=== PATIENT | female | born 1970 | race Two or more races ===

== ENCOUNTER 2024-01-29 16:02 | Observation (INO) | payer MEDICARE, MEDICAID, SELFPAY ==
--- NOTE | ~2024-01-29 | CT_ITS ---
EXAMINATION: CT brain wo con DATE: 01/31/2024 10:52 INDICATION: Headache. TECHNIQUE: Computed tomography (CT) of the head was performed without intravenous contrast. The mA wa s adjusted according to patient size. Iterative reconstruction technique was employed. The dose-lengt h product was 605.33 mGy-cm. COMPARISON: None FINDINGS: There is no intracranial hemorrhage, acute infarction, or abnormal intracranial mass lesion . The ventricles are normal in size. There is mild mucosal thickening in the paranasal sinuses. The o rbits are normal. The mastoid air cells are normal. IMPRESSION: 1. Normal brain. Reviewed, dictated and finalized at location A. ION JAILER IMPRESSION: 1. Normal brain.
--- NOTE | ~2024-01-29 | XR_ITS ---
CHEST RADIOGRAPH, PA AND LATERAL CLINICAL HISTORY: chest pain . COMPARISON: None available TECHNIQUE: PA and lateral views of the chest. FINDINGS The cardiomediastinal silhouette is unremarkable. The lungs are clear. Visualized osseous structures and soft tissues are unremarkable. IMPRESSION: No focal infiltrate or effusion. Reviewed, dictated and finalized at location A. ACE COOLER
--- NOTE | ~2024-01-29 | US_ITS ---
EXAMINATION: US venous doppler UE DATE: 01/29/2024 21:17 INDICATION: Pain TECHNIQUE: Grayscale ultrasound images without and with compression and Doppler ultrasound images of the left upper extremity veins were obtained. COMPARISON: None. FINDINGS: The visualized portions of the left jugular, subclavian, axillary, brachial, basilic, cephalic, radia l and ulnar veins are patent and compressible. IMPRESSION: 1. No deep venous thrombosis. Reviewed, dictated and finalized at location A. WALKER
--- NOTE | ~2024-01-29 | US_ITS ---
EXAMINATION: US venous doppler [facility] DATE: 01/30/2024 09:19 INDICATION: Lower limb swelling TECHNIQUE: Grayscale ultrasound images without and with compression and Doppler ultrasound images of the bilateral lower extremity veins were obtained. COMPARISON: None. FINDINGS: The visualized portions of right common femoral vein, profunda (deep) femoral vein, femoral vein, pop liteal vein, posterior tibial veins, peroneal veins, gastrocnemius vein and greater saphenous vein ou tflow are patent. The visualized portions of left common femoral vein, profunda femoral vein, femoral vein, popliteal v ein, posterior tibial veins, peroneal veins, gastrocnemius vein and greater saphenous vein outflow ar e patent. IMPRESSION: 1. No deep venous thrombosis in either lower limb. Reviewed, dictated and finalized at location B. IDENT & CEO
--- NOTE | ~2024-01-29 | XR_ITS ---
HISTORY: shoulder pain COMPARISON: None TECHNIQUE: 4 views of the left shoulder were performed FINDINGS: No acute fracture. The glenohumeral and acromioclavicular joint space is maintained The visualized portion of the adjacent left lung is clear. The humeral head is well seated within the glenoid fossa. IMPRESSION: No acute fracture or anterior dislocation. Reviewed, dictated and finalized at location A. E'S AIDES TEACHER
--- NOTE | ~2024-01-29 | CT_ITS ---
EXAMINATION: CTA chest PE protocol DATE: 01/29/2024 20:49 LIFT MECHANIC INDICATION: Left upper chest pain. Pulmonary embolus suspected clinically TECHNIQUE: Computed tomographic angiography (CTA) of the chest was performed with 100 mL Omnipaque-35 0 intravenous contrast. The dose-length product was 509.57 mGy-cm. Maximum intensity projection 3D-re constructions of the aorta and other arteries were constructed by the technologist on a separate work station. COMPARISON: None. FINDINGS: No filling defect within the main or proximal pulmonary arteries. Pulmonary artery is not enlarged. The heart is of normal size, without pericardial effusion. The lungs are clear. No significant degenerative disease is identified within the thoracic spine. No acute rib fractures. No lytic or blastic lesions are noted. Within the upper abdomen: No significant abnormalities are appreciated. IMPRESSION: No pulmonary embolus. No aortic dissection. No discrete osseous abnormality. The lungs are clear Reviewed, dictated and finalized at location A. MECHANIC
--- NOTE | 2024-01-29 16:22 | ECG_ITS ---
Test Date: 2024-01-29 18:37:51 Measurements Intervals [place] Rate: 67 P: 41 SC: 186 QRS: 73 QRSD: 147 T: -71 QT: 470 QTc: 497 Interpretive Statements SINUS RHYTHM POSSIBLE LEFT ATRIAL ENLARGEMENT IVCD, WITH BOTH RIGHT BUNDLE BRANCH BLOCK AND LBBB CONSIDER INFERIOR INFARCT, AGE INDETERMINATE BASELINE ARTIFACT- I, III, AVR, AVL, AVF ABNORMAL ECG No previous ECG available for comparison Electronically Signed On 01-29-2024 20:21:18 MARKETING EDITOR by Rodrigo Youssef D.O.
--- NOTE | 2024-01-29 16:23 | ED.CHESTPAIN ---
HPI - Chest Pain General Chief Complaint: Headache <Meredith Ruiz PA-C - Last Filed: 01/29/24 16:25> Stated Complaint: migraine x3 days <Meredith Ruiz PA-C - Last Filed: 01/29/24 16:25> Time Seen by Provider: 01/29/24 19:14 <Meredith Ruiz PA-C - Last Filed: 01/29/24 16:25> Focused HPI: 53-year-old female presents to emergency department for multiple medical complaints. Patient is resident [facility]. She is reporting bitemporal headache for couple of days, chest pain and left shoulder pain. She denies injury or trauma to her head, chest or shoulder. She denies cough, congestion, shortness of breath. She states she has no CHF and has lower extremity edema. Denies vision changes, focal numbness or weakness. GENERAL: Well-appearing, well-nourished, and in no acute distress. HEAD: Normocephalic, atraumatic. CHEST: Clear to auscultation. ?No respiratory distress. HEART: Regular rate and rhythm.? NEURO: ?Alert and oriented x3. Patient screened in triage and initial orders placed.? ?Additional care and disposition to be based upon?diagnostic testing and treatment. <Meredith Ruiz PA-C - Last Filed: 01/29/24 16:25> Source: patient <Tasha Contreras MD - Last Filed: 01/29/24 22:11> History of Present Illness HPI narrative: PATIENT CAME FROM SNF COMPLAINING OF UPPER EXTREMITY PAIN, LEFT UPPER EXTREMITY SWOLLEN, LEFT CHEST PAIN, HEADACHE, STARTED 1-2 WEEKS AGO. she denies any fever, chills, nausea, vomiting, shortness of breath or vision change. <Tasha Contreras MD - Last Filed: 01/29/24 22:11> Related Data On Oral Contraceptives: No <Tasha Contreras MD - Last Filed: 01/29/24 22:11> Allergies/Adverse Reactions: Allergies Allergy/AdvReac Type Severity Reaction Status Date / Time Penicillins Allergy Anaphylaxis Verified 01/29/24 19:29 <Meredith Ruiz PA-C - Last Filed: 01/29/24 16:25> Review of Systems Review of Systems: All systems reviewed & are unremarkable except as noted in HPI and below <Tasha Contreras MD - Last Filed: 01/29/24 22:11> Exam Narrative: GENERAL APPEARANCE: WELL-DEVELOPED, WELL-NOURISHED SKIN: NORMAL COLOR HEAD: NORMOCEPHALIC, NONTRAUMATIC EYES: CLEAR CONJUNCTIVA ENT: OROPHARYNX NORMAL, EARS NORMAL, NOSE NORMAL NECK: SUPPLE, NONTENDER CHEST AND RESPIRATORY: AIRWAY PATENT, NO RESPIRATORY DISTRESS, NO ACCESSORY MUSCLE USE HT BULGING VEINS ON THE LEFT SIDE OF THE CHEST HEART: REGULAR RATE/RHYTHM ABDOMEN: SOFT, NONTENDER, NO ORGANOMEGALY, QUIET BOWEL SOUNDS VASCULAR: NORMAL PERIPHERAL PULSES, NORMAL CAPILLARY REFILL. MUSCULOSKELETAL: LEFT UPPER EXTREMITY IS SWOLLEN COMPARED TO RIGHT 1, SLIGHTLY TENDER, SOFT IN CONSISTENCY, NO ERYTHEMA OR RASH, GOOD RANGE OF MOTION NEUROLOGIC: ALERT AND ORIENTED ?3, ROAD TRAIN DRIVER IS NORMAL TESTED, NO GROSS MOTOR DEFICIT <Tasha Contreras MD - Last Filed: 01/29/24 22:11> Course Vital Signs Vital signs: Vital Signs Temperature 36.7 C 01/29/24 16:45 Pulse Rate 75 01/29/24 16:45 Respiratory Rate 18 01/29/24 16:45 Blood Pressure 140/84 01/29/24 16:45 Pulse Oximetry 100 01/29/24 16:45 Oxygen Delivery Room Air 01/29/24 16:45 Temperature 36.7 C 01/29/24 16:45 Pulse Rate 69 01/29/24 19:30 Respiratory Rate 18 01/29/24 19:30 Blood Pressure 132/80 01/29/24 19:24 Pulse Oximetry 100 01/29/24 19:30 Oxygen Delivery Room Air 01/29/24 19:24 <Meredith Ruiz PA-C - Last Filed: 01/29/24 16:25> Vital Signs Temperature 36.7 C 01/29/24 16:45 Pulse Rate 75 01/29/24 16:45 Respiratory Rate 18 01/29/24 16:45 Blood Pressure 140/84 01/29/24 16:45 Pulse Oximetry 100 01/29/24 16:45 Oxygen Delivery Room Air 01/29/24 16:45 Temperature 36.7 C 01/29/24 16:45 Pulse Rate 69 01/29/24 19:30 Respiratory Rate 18 01/29/24 19:30 Blood Pressure 132/80 01/29/24 19:24 Pulse Oximetry 100 01/29/24 19:30 Oxygen Delivery Room Air 01/29/24 19:24 <Tasha Contreras MD - Last Filed: 01/29/24 22:11> MDM - Chest Pain MDM Narrative Medical decision making narrative: Patient presents with headache, chest pain, left upper extremity swelling. Vital signs are stable Physical examination showing that the left upper extremity is larger compared to the right 1. Venous engorgement of the left chest Differential diagnosis left upper extremity deep vein thrombosis, pulmonary embolism, thoracic outlet syndrome, electrolyte abnormality, dehydration, urinary tract infection Blood workup today included CBC and CMP showed sodium of 130, potassium 2.5, chloride 79, creatinine of 1.4, otherwise insignificant abnormalities Urinalysis shows evidence of infection <Tasha Contreras MD - Last Filed: 01/29/24 22:11> Differential Diagnosis Differential diagnosis: Likely other ( as above) <Tasha Contreras MD - Last Filed: 01/29/24 22:11> Medical Records Data Attestation: I reviewed the patient's medical records. <Tasha Contreras MD - Last Filed: 01/29/24 22:11> Lab Data Attestation: I reviewed the patient's lab results. <Tasha Contreras MD - Last Filed: 01/29/24 22:11> Result diagrams: 01/29/24 18:29 01/29/24 18:29 <Meredith Ruiz PA-C - Last Filed: 01/29/24 16:25> Labs: Lab Results 01/29/24 01/29/24 01/29/24 Range/Units 18:29 18:31 19:49 WBC 10.0 (4.5-10.0) K/mm3 RBC 4.76 (4.2-5.4) M/mm3 Hgb 13.3 (12.0-15.0) g/dL Hct 38.2 (37.0-47.0) % MCV 80.3 (80-100) fl MCH 27.9 (26-34) pg MCHC 34.8 (32-36) g/dl RDW 11.9 (11.5-14.5) % Plt Count 241 (150-375) k/mm3 MPV 11.3 H (7.4-10.4) fl Immature Gran % (Auto) 0.3 (0-0.5) % Neut % (Auto) 62.9 (45.5-73.1) % Lymph % (Auto) 26.6 (18.3-44.2) % [place] % (Auto) 6.8 (2.6-8.5) % Eos % (Auto) 2.8 (0-4.4) % Baso % (Auto) 0.6 (0.2-1.2) % Lymph # (Auto) 2.65 (0.9-3.2) K/mm3 [place] # (Auto) 0.7 H (0.1-0.6) K/mm3 Eos # (Auto) 0.3 (0-0.3) K/mm3 Baso # (Auto) 0.1 (0.0-0.1) K/mm3 Abs Immat Gran (auto) 0.03 (0.00-0.031) K/mm3 Absolute Neuts (auto) 6.3 (1.3-6.7) K/mm3 Absolute Nucleated RBC 0.000 (0.0-0.012) K/mm3 Nucleated RBC % 0.0 (0.0-0.2) % PT 12.6 (11.1-14.7) Seconds INR 0.9 APTT 23.4 (22.3-36.8) Seconds D-Dimer 0.28 (<0.48) ug/mL Sodium 130 L (137-145) mmol/L Potassium 2.5 L* (3.4-5.0) mmol/L Chloride 79 L (98-107) mmol/L Carbon Dioxide > 40 H (22-30) mmol/L Anion Gap (4-12) mmol/L BUN 34 H (7-17) mg/dL Creatinine 1.40 H (0.7-1.0) mg/dL Estim Creat Clear Calc 37 ml/min Estimated GFR 39 L (59 - ) Glucose 132 H (65-110) mg/dL Calcium 8.5 (8.4-10.2) mg/dL Total Bilirubin 0.6 (0.2-1.3) mg/dL AST 27 (14-36) U/L ALT 23 (6-35) U/L Alkaline Phosphatase 106 (38-126) U/L Troponin I < 0.012 < 0.012 (0.000-0.034) ng/mL NT-Pro-B Natriuret Pep 60 (19.9-100) pg/mL Total Protein 9.0 H (6.3-8.2) g/dL Albumin 4.9 (3.5-5.1) g/dL Lipase 58 (23-300) U/L Urine Color Yellow (Yellow) Urine Appearance Clear (Clear) Urine pH 5.5 (5.0-9.0) Ur Specific [place] 1.012 (1.001-1.035) Urine Protein Negative (Negative) mg/dL Urine Glucose (UA) Negative (Negative) mg/dL Urine Ketones Negative (Negative) mg/dL Ur Blood (Man) Negative (Negative) Urine Nitrate Negative (Negative) Urine Bilirubin Negative (Negative) Urine Urobilinogen 0.2 (<2.0) mg/dL Add Ur Microanalysis Reviewed Leukocyte Esterase Rfl 2+ H (Negative) ATUL/UL Urine RBC 0-2 (0-2) /hpf Urine WBC 6-10 H (0-3) /hpf Ur Squamous Epith Cells Occasional (Few) /hpf Urine Bacteria Rare /hpf Urine Casts 6-10 Hyaline Casts Present (None) /lpf <Meredith Ruiz PA-C - Last Filed: 01/29/24 16:25> Lab Results 01/29/24 01/29/24 01/29/24 Range/Units 18:29 18:31 19:49 WBC 10.0 (4.5-10.0) K/mm3 RBC 4.76 (4.2-5.4) M/mm3 Hgb 13.3 (12.0-15.0) g/dL Hct 38.2 (37.0-47.0) % MCV 80.3 (80-100) fl MCH 27.9 (26-34) pg MCHC 34.8 (32-36) g/dl RDW 11.9 (11.5-14.5) % Plt Count 241 (150-375) k/mm3 MPV 11.3 H (7.4-10.4) fl Immature Gran % (Auto) 0.3 (0-0.5) % Neut % (Auto) 62.9 (45.5-73.1) % Lymph % (Auto) 26.6 (18.3-44.2) % [place] % (Auto) 6.8 (2.6-8.5) % Eos % (Auto) 2.8 (0-4.4) % Baso % (Auto) 0.6 (0.2-1.2) % Lymph # (Auto) 2.65 (0.9-3.2) K/mm3 [place] # (Auto) 0.7 H (0.1-0.6) K/mm3 Eos # (Auto) 0.3 (0-0.3) K/mm3 Baso # (Auto) 0.1 (0.0-0.1) K/mm3 Abs Immat Gran (auto) 0.03 (0.00-0.031) K/mm3 Absolute Neuts (auto) 6.3 (1.3-6.7) K/mm3 Absolute Nucleated RBC 0.000 (0.0-0.012) K/mm3 Nucleated RBC % 0.0 (0.0-0.2) % PT 12.6 (11.1-14.7) Seconds INR 0.9 APTT 23.4 (22.3-36.8) Seconds D-Dimer 0.28 (<0.48) ug/mL Sodium 130 L (137-145) mmol/L Potassium 2.5 L* (3.4-5.0) mmol/L Chloride 79 L (98-107) mmol/L Carbon Dioxide > 40 H (22-30) mmol/L Anion Gap (4-12) mmol/L BUN 34 H (7-17) mg/dL Creatinine 1.40 H (0.7-1.0) mg/dL Estim Creat Clear Calc 37 ml/min Estimated GFR 39 L (59 - ) Glucose 132 H (65-110) mg/dL Calcium 8.5 (8.4-10.2) mg/dL Total Bilirubin 0.6 (0.2-1.3) mg/dL AST 27 (14-36) U/L ALT 23 (6-35) U/L Alkaline Phosphatase 106 (38-126) U/L Troponin I < 0.012 < 0.012 (0.000-0.034) ng/mL NT-Pro-B Natriuret Pep 60 (19.9-100) pg/mL Total Protein 9.0 H (6.3-8.2) g/dL Albumin 4.9 (3.5-5.1) g/dL Lipase 58 (23-300) U/L Urine Color Yellow (Yellow) Urine Appearance Clear (Clear) Urine pH 5.5 (5.0-9.0) Ur Specific [place] 1.012 (1.001-1.035) Urine Protein Negative (Negative) mg/dL Urine Glucose (UA) Negative (Negative) mg/dL Urine Ketones Negative (Negative) mg/dL Ur Blood (Man) Negative (Negative) Urine Nitrate Negative (Negative) Urine Bilirubin Negative (Negative) Urine Urobilinogen 0.2 (<2.0) mg/dL Add Ur Microanalysis Reviewed Leukocyte Esterase Rfl 2+ H (Negative) ATUL/UL Urine RBC 0-2 (0-2) /hpf Urine WBC 6-10 H (0-3) /hpf Ur Squamous Epith Cells Occasional (Few) /hpf Urine Bacteria Rare /hpf Urine Casts 6-10 Hyaline Casts Present (None) /lpf <Tasha Contreras MD - Last Filed: 01/29/24 22:11> Imaging Data Radiologist's impression: Impressions Chest X-Ray 01/29/24 17:01 IMPRESSION: No focal infiltrate or effusion. Shoulder X-Ray 01/29/24 17:04 IMPRESSION: No acute fracture or anterior dislocation. Chest CTA 01/29/24 20:49 IMPRESSION: No pulmonary embolus. No aortic dissection. No discrete osseous abnormality. The lungs are clear Venous Doppler Study 01/29/24 21:29 IMPRESSION: 1. No deep venous thrombosis. <Tasha Contreras MD - Last Filed: 01/29/24 22:11> ECG Data EKG #1: Attestation: I personally reviewed and interpreted this ECG as follows: <Tasha Contreras MD - Last Filed: 01/29/24 22:11> ECG completion date: 01/29/24 <Tasha Contreras MD - Last Filed: 01/29/24 22:11> Prior ECG tracings: not available for review <Tasha Contreras MD - Last Filed: 01/29/24 22:11> Interpretation: normal sinus rhythm at 6 5 beats per minute, left atrial enlargement, right bundle branch block, consider inferior infarct, age indeterminate, abnormal EKG <Tasha Contreras MD - Last Filed: 01/29/24 22:11> Critical Care Time Critical Care Time Critical Care Time: No <Tasha Contreras MD - Last Filed: 01/29/24 22:11> Discharge Plan Discharge Clinical Impression: Hyponatremia, Hypokalemia, Renal insufficiency, Urinary tract infection <Meredith Ruiz PA-C - Last Filed: 01/29/24 16:25> Patient Disposition: Still a Patient <Meredith Ruiz PA-C - Last Filed: 01/29/24 16:25> Condition: Stable <Meredith Ruiz PA-C - Last Filed: 01/29/24 16:25> Additional Instructions: admit to hospitalist <Meredith Ruiz PA-C - Last Filed: 01/29/24 16:25> Follow-up/Referrals: UNKNOWN,DOCTOR [Primary Care Provider] - <Meredith Ruiz PA-C - Last Filed: 01/29/24 16:25>
[2024-01-29 16:45] VITALS: BP 140/84; PULSE 75; RESP 18; TEMP 36.7; O2SAT 100
[2024-01-29 18:39] LABS: Basophils Absolute Auto 0.1 K/mm3 (0.0-0.1); Basophils Percent Auto 0.6 % (0.2-1.2); Eosinophils Absolute Auto 0.3 K/mm3 (0-0.3); Eosinophils Percent Auto 2.8 % (0-4.4); Hematocrit 38.2 % (37.0-47.0); Hemoglobin 13.3 g/dL (12.0-15.0); Immature Granulocyte Absolute 0.03 K/mm3 (0.00-0.031); Immature Granulocyte Percent A 0.3 % (0-0.5); Lymphocytes Absolute Auto 2.65 K/mm3 (0.9-3.2); Lymphocytes Percent Auto 26.6 % (18.3-44.2); Mean Corpuscular HGB Conc 34.8 g/dl (32-36); Mean Corpuscular Hemoglobin 27.9 pg (26-34); Mean Corpuscular Volume 80.3 fl (80-100); Mean Platelet Volume 11.3 fl (7.4-10.4); Monocytes Absolute Auto 0.7 K/mm3 (0.1-0.6); Monocytes Percent Auto 6.8 % (2.6-8.5); Neutrophils Absolute Auto 6.3 K/mm3 (1.3-6.7); Neutrophils Percent Auto 62.9 % (45.5-73.1); Platelet Count Result 241 k/mm3 (150-375); Red Blood Count 4.76 M/mm3 (4.2-5.4); Red Cell Distribution Width 11.9 % (11.5-14.5)
[2024-01-29 18:52] LABS: Alanine Aminotransferase 23 U/L (6-35); Albumin Level 4.9 g/dL (3.5-5.1); Alkaline Phosphatase 106 U/L (38-126); Aspartate Amino Transferase 27 U/L (14-36); Bilirubin,Total 0.6 mg/dL (0.2-1.3); Blood Urea Nitrogen 34 mg/dL (7-17); Calcium 8.5 mg/dL (8.4-10.2); Carbon Dioxide > 40 mmol/L (22-30); Chloride 79 mmol/L (98-107); Estimated CRCL calculation 37 ml/min; Estimated Glomerular Filt Rate 39; Glucose 132 mg/dL (65-110); Lipase 58 U/L (23-300); Potassium 2.5 mmol/L (3.4-5.0); Sodium 130 mmol/L (137-145)
[2024-01-29 19:00] LABS: NT Pro B Type Natriuretic Pept 60 pg/mL (19.9-100); Troponin I < 0.012 ng/mL (0.000-0.034)
[2024-01-29 19:18] LABS: Add Urine Microscopic? YES; Appearance Urine Clear (Clear); Bacteria Urine Rare /hpf; Bilirubin Urine Negative (Negative); Blood Urine Negative (Negative); Color Urine Yellow (Yellow); Glucose Urine UA Negative (Negative); Hyaline Casts Urine Present /lpf; Ketones Urine Negative (Negative); Leukocyte Esterase Ur 2+ LEU/UL (Negative); Need Manual Microscopic Reviewed; Nitrate Urine Negative (Negative); Protein Urine Negative (Negative); RBC Urine 0-2 /hpf (0-2); Specific Grav Ur 1.012 (1.001-1.035); Squamous Epithelial Cell Urine Occasional /hpf (Few); Urobilinogen Urine 0.2 mg/dL (<2.0); pH Urine 5.5 (5.0-9.0)
[2024-01-29 19:21] LABS: INR 0.9; Prothrombin Time 12.6 Seconds (11.1-14.7)
[2024-01-29 19:23] LABS: Partial Thromboplastin Time 23.4 Seconds (22.3-36.8)
[2024-01-29 19:24] VITALS: BP 132/80; PULSE 72; RESP 17; O2SAT 100
--- NOTE | 2024-01-29 19:24 | ECG_ITS ---
Test Date: 2024-01-29 19:48:50 Measurements Intervals [place] Rate: 65 P: 33 AR: 185 QRS: 57 QRSD: 156 T: -59 QT: 533 QTc: 555 Interpretive Statements SINUS RHYTHM POSSIBLE LEFT ATRIAL ENLARGEMENT IVCD, WITH RIGHT BUNDLE BRANCH BLOCKAND LBBB CONSIDER INFERIOR INFARCT, AGE INDETERMINATE ABNORMAL ECG Compared to ECG 01/29/2024 18:37:51 No significant changes Electronically Signed On 01-29-2024 20:18:24 SHEETER MACHINE OPERATOR by Rodrigo Youssef D.O.
--- NOTE | 2024-01-29 19:24 | ED.GENADULT ---
HPI - General Adult General Chief complaint: Headache Stated complaint: migraine x3 days Time Seen by Provider: 01/29/24 19:14 Related Data Allergies Allergy/AdvReac Type Severity Reaction Status Date / Time Penicillins Allergy Anaphylaxis Verified 01/29/24 19:29 Course Vital Signs Vital signs: Vital Signs Temperature 36.7 C 01/29/24 16:45 Pulse Rate 75 01/29/24 16:45 Respiratory Rate 18 01/29/24 16:45 Blood Pressure 140/84 01/29/24 16:45 Pulse Oximetry 100 01/29/24 16:45 Oxygen Delivery Room Air 01/29/24 16:45 Temperature 36.7 C 01/29/24 16:45 Pulse Rate 72 01/29/24 19:24 Respiratory Rate 17 01/29/24 19:24 Blood Pressure 132/80 01/29/24 19:24 Pulse Oximetry 100 01/29/24 19:24 Oxygen Delivery Room Air 01/29/24 19:24 Medical Decision Making Vital Signs Vital Signs: Vital Signs Temperature 36.7 C 01/29/24 16:45 Pulse Rate 75 01/29/24 16:45 Respiratory Rate 18 01/29/24 16:45 Blood Pressure 140/84 01/29/24 16:45 Pulse Oximetry 100 01/29/24 16:45 Oxygen Delivery Room Air 01/29/24 16:45 Temperature 36.7 C 01/29/24 16:45 Pulse Rate 72 01/29/24 19:24 Respiratory Rate 17 01/29/24 19:24 Blood Pressure 132/80 01/29/24 19:24 Pulse Oximetry 100 01/29/24 19:24 Oxygen Delivery Room Air 01/29/24 19:24 Lab Data 01/29/24 18:29 01/29/24 18:29 Labs: Lab Results 01/29/24 01/29/24 Range/Units 18:29 18:31 WBC 10.0 (4.5-10.0) K/mm3 RBC 4.76 (4.2-5.4) M/mm3 Hgb 13.3 (12.0-15.0) g/dL Hct 38.2 (37.0-47.0) % MCV 80.3 (80-100) fl MCH 27.9 (26-34) pg MCHC 34.8 (32-36) g/dl RDW 11.9 (11.5-14.5) % Plt Count 241 (150-375) k/mm3 MPV 11.3 H (7.4-10.4) fl Immature Gran % (Auto) 0.3 (0-0.5) % Neut % (Auto) 62.9 (45.5-73.1) % Lymph % (Auto) 26.6 (18.3-44.2) % [place] % (Auto) 6.8 (2.6-8.5) % Eos % (Auto) 2.8 (0-4.4) % Baso % (Auto) 0.6 (0.2-1.2) % Lymph # (Auto) 2.65 (0.9-3.2) K/mm3 [place] # (Auto) 0.7 H (0.1-0.6) K/mm3 Eos # (Auto) 0.3 (0-0.3) K/mm3 Baso # (Auto) 0.1 (0.0-0.1) K/mm3 Abs Immat Gran (auto) 0.03 (0.00-0.031) K/mm3 Absolute Neuts (auto) 6.3 (1.3-6.7) K/mm3 Absolute Nucleated RBC 0.000 (0.0-0.012) K/mm3 Nucleated RBC % 0.0 (0.0-0.2) % PT 12.6 (11.1-14.7) Seconds INR 0.9 APTT 23.4 (22.3-36.8) Seconds Sodium 130 L (137-145) mmol/L Potassium 2.5 L* (3.4-5.0) mmol/L Chloride 79 L (98-107) mmol/L Carbon Dioxide > 40 H (22-30) mmol/L Anion Gap (4-12) mmol/L BUN 34 H (7-17) mg/dL Creatinine 1.40 H (0.7-1.0) mg/dL Estim Creat Clear Calc 37 ml/min Estimated GFR 39 L (59 - ) Glucose 132 H (65-110) mg/dL Calcium 8.5 (8.4-10.2) mg/dL Total Bilirubin 0.6 (0.2-1.3) mg/dL AST 27 (14-36) U/L ALT 23 (6-35) U/L Alkaline Phosphatase 106 (38-126) U/L Troponin I < 0.012 (0.000-0.034) ng/mL NT-Pro-B Natriuret Pep 60 (19.9-100) pg/mL Total Protein 9.0 H (6.3-8.2) g/dL Albumin 4.9 (3.5-5.1) g/dL Lipase 58 (23-300) U/L Urine Color Pending Urine Appearance Pending Urine pH Pending Ur Specific [place] Pending Urine Protein Pending Urine Glucose (UA) Pending Urine Ketones Pending Ur Blood (Man) Pending Urine Nitrate Pending Urine Bilirubin Pending Urine Urobilinogen Pending Leukocyte Esterase Rfl Pending Discharge Plan Discharge Follow-up/Referrals: UNKNOWN,DOCTOR [Primary Care Provider] -
[2024-01-29 19:30] VITALS: PULSE 69; RESP 18; O2SAT 100
[2024-01-29 20:08] LABS: D Dimer 0.28 ug/mL (<0.48)
[2024-01-29 20:20] LABS: Troponin I < 0.012 ng/mL (0.000-0.034)
[2024-01-29 21:34] VITALS: BP 133/79; PULSE 66; RESP 12; O2SAT 100
[2024-01-29 21:47] VITALS: BP 147/90; PULSE 67; RESP 14; O2SAT 100
[2024-01-29] MEDS: POTASSIUM CHLORIDE 20 MEQ PACKET (FOR LIQUID) 40 MEQ PO (22:05)
[2024-01-29] MEDS: POTASSIUM CHLORIDE INJ 40 MEQ in SODIUM CHLORIDE 0.9% IV 500 ML 130 MEQ IVPB (22:05)
[2024-01-29] MEDS: SODIUM CHLORIDE 0.9% IV 1,000 ML 999 ML IV CONT (22:05)
[2024-01-29 22:34] LABS: Fractional Inspired Oxygen 21 %; HCO3 VBG 39.7 mEq/l (24.0-30.0); PCO2 VBG 48.1 mmHg (42.0-48.0); PO2 VBG 42.7 mmHg (35.0-45.0)
[2024-01-29 22:41] LABS: Device ROOM AIR; pH VBG 7.535 (7.300-7.400)
[2024-01-29 23:09] LABS: Troponin I < 0.012 ng/mL (0.000-0.034)
[2024-01-29 23:54] VITALS: BMI 32.4
[2024-01-30] VITALS (10 sets, daily range): BP systolic 107–128; BP diastolic 69–81; PULSE 59–85; RESP 12–18; TEMP 36.2–36.7; O2SAT 97–99
--- NOTE | 2024-01-30 00:35 | ECHO_ITS ---
Patient Info Name: Nataliya Simon Age: 53 years : 1970 Gender: Female Ht: 59 in Wt: 160 lbs BSA: 1.77 m2 HR: 74 bpm BP: 107 / 79 mmHg Technical Quality: Fair Exam Date: 01/30/2024 11:58 AM Exam Location: Echo Lab Patient Status: Inpatient Admit Date: 01/29/2024 Staff Ordering Physician: Carmelita Grider PA-C [employer] Mixer: Neda Jimenez RDCS Attending Provider: Lilian Pandey PA-C Referring Physician: Cheo LYLE; Exam Type: CA echo doppler color flow Study Info Indications - EDEMA Complete two-dimensional, color flow and Doppler transthoracic echocardiogram is performed. Summary 1. Complete two-dimensional, color flow and Doppler transthoracic echocardiogram is performed. 2. Left ventricular chamber dimension is normal. 3. Left ventricular systolic function is hyperdynamic, estimated at >70%. 4. The left ventricular diastolic function is grade I diastolic dysfunction. 5. E/e' 13 is mildly elevated. 6. No pulmonary hypertension, estimated pulmonary arterial systolic pressure is 23 mmHg. Left Ventricle E/e' 13 is mildly elevated. Left ventricular chamber dimension is normal. Left ventricular systolic function is hyperdynamic, estimated at >70%. The left ventricular diastolic function is grade I diastolic dysfunction. Right Ventricle Right ventricular chamber dimension is normal. Right ventricular systolic function is normal. Left Atria Left atrial chamber dimension is normal. Right Atria Right atrial chamber dimension is normal. Aortic Valve The aortic valve is not well visualized. Cannot determine number of aortic valve leaflets. There is no aortic valve stenosis. There is no aortic valve regurgitation. Pulmonic Valve There is no pulmonic regurgitation. Mitral Valve There is no mitral valve stenosis. There is no mitral valve regurgitation. Tricuspid Valve There is no tricuspid valve regurgitation. No pulmonary hypertension, estimated pulmonary arterial systolic pressure is 23 mmHg. Pericardium/Pleural There is no pericardial effusion. Inferior Vena Cava Normal inferior vena cava with >50% collapse upon inspiration consistent with normal right atrial pressure, 5 mmHg. Aorta The aortic root size at the sinus of Valsalva is normal. Left Ventricular Outflow Tract Name Value Normal LVOT 2D LVOT Diameter 1.9 cm LVOT Doppler LVOT Peak Gradient 6 mmHg LVOT Mean Gradient 4 mmHg LVOT VTI 27 cm LVOT VTI/AV VTI Ratio 1.0 LVOT Stroke Volume 75 ml LVOT CO 4.8 l/min LVOT CI 2.7 l/min/m2 Pulmonic Valve Name Value Normal RVOT Doppler RVOT Peak Gradient 3 mmHg PV Doppler PV Peak Gradient 6 mmHg Mitral Valve Name Value Normal MV Doppler MV Decel [place] 410 cm/s2 MV PHT 69 ms MV Area (PHT) 3.2 cm2 4.0-5.0 MV Diastolic Function MV E Peak Velocity 98 cm/s MV A Peak Velocity 101 cm/s MV E/A 1.0 MV Decel Time 238 ms Tricuspid Valve Name Value Normal TV Regurgitation Doppler TR Peak Velocity 213 cm/s TR Peak Gradient 18 mmHg Estimated PAP/RSVP RA Pressure 5 mmHg <=5 PA Systolic Pressure 23 mmHg <36 RV Systolic Pressure 23 mmHg <36 Aorta Name Value Normal Ascending Aorta Ao Root Diameter (MM) 3.0 cm Ao Root Diam Index (MM) 1.7 cm/m2 Aortic Valve Name Value Normal AV Doppler AV Peak Velocity 154 cm/s AV Peak Gradient 9 mmHg AV Mean Gradient 5 mmHg AV VTI 29 cm AV Area (Cont Eq VTI) 2.6 cm2 >=3.0 AV Area (Cont Eq Presley) 2.2 cm2 AV Regurgitation 2D LVOT Area 2.7 cm2 Ventricles Name Value Normal LV Dimensions 2D/MM IVS Diastolic Thickness (2D) 0.9 cm 0.6-1.0 IVS Diastole Thickness (MM) 1.0 cm 0.6-0.9 LVID Diastole (2D) 4.4 cm 3.8-5.2 LVID Diastole (MM) 4.6 cm 3.8-5.2 LVIW Diastolic Thickness (2D) 1.0 cm 0.6-0.9 LVIW Diastolic Thickness (MM) 0.9 cm 0.6-0.9 LVID Systole (2D) 2.9 cm 2.2-3.5 LVID Systole (MM) 1.7 cm 2.2-3.5 LVOT Diameter 1.9 cm LV Mass (2D Cubed) 141.75 g 67.00-162.00 LV Mass Index (2D Cubed) 80 g/m2 43-95 Relative Wall Thickness (2D) 0.46 LV Mass (MM Cubed) 152.71 g 67.00-162.00 LV Mass Index (MM Cubed) 86 g/m2 43-95 Relative Wall Thickness (MM) 0.38 LV Fractional Shortening/Ejection Fraction 2D/MM LV Fractional Shortening (2D) 35 % 27-45 LV Fractional Shortening (MM) 63 % 27-45 LV EF (MM Teicholz) 92 % 54-74 LV EF (2D Teicholz) 65 % 54-74 LV Diastolic Volume (4C MOD) 52 ml LV EF (4C MOD) 79 % LV Diastolic Volume (2C MOD) 39 ml LV EF (2C MOD) 50 % LV Diastolic Volume (BP MOD) 46 ml 46-106 LV Diastolic Volume Index (BP MOD) 26 ml/m2 29-61 LV Systolic Volume (BP MOD) 14 ml 14-42 LV Systolic Volume Index (BP MOD) 8 ml/m2 8-24 LV EF (BP MOD) 69 % 54-74 LV Diastolic Length (4C) 6.4 cm LV Systolic Length (4C) 5.1 cm LV Stroke Volume (4C MOD) 41 ml Atria Name Value Normal LA Dimensions LA Dimension (MM) 3.0 cm 2.7-3.8 LA Volume (4C A-L) 26 ml LA Volume (BP A-L) 29 ml RA Dimensions RA Area (4C) 7.9 cm2 <=18.0 Report Signatures
--- NOTE | 2024-01-30 00:56 | ADMGEN ---
This patient, Nataliya Simon, was admitted to [facility] Surg Room 312-01. Patient/family oriented to hospital policies and general routines including ID bracelet, bed and alarms, visiting hours, pain management, procedures, bathroom and other care routines, personal items, smoking policy, room service/diet, and visiting hours. Information on how to activate the Rapid Response Team has been discussed. Patient/Family are encouraged to report perceived risks to care and to ask questions if they do not understand what they are told or what they should do.
[2024-01-30 03:45] LABS: Blood Urea Nitrogen 27 mg/dL (7-17); Calcium 8.2 mg/dL (8.4-10.2); Carbon Dioxide > 40 mmol/L (22-30); Chloride 85 mmol/L (98-107); Estimated Glomerular Filt Rate 52; Glucose 147 mg/dL (65-110); Magnesium 1.7 mg/dL (1.6-2.3); Potassium 2.8 mmol/L (3.4-5.0); Sodium 133 mmol/L (137-145)
[2024-01-30] MEDS: POTASSIUM CHLORIDE 20 MEQ ER TABLET 40 MEQ PO (05:01)
--- NOTE | 2024-01-30 07:00 | PM.IMPN ---
Progress Note: A&P Assessment and Plan (1) Acute kidney injury: Code(s): N17.9 - Acute kidney failure, unspecified Status: Acute Assessment and Plan: BUN/Cr 34/1.4 on admission, no prior labs to compare to - BUN/Cr 28/1.2 on am labs - IV NS 75 ml/hr - Avoid nephrotoxic medications - Renally dose medications - Monitor I&Os, vital signs, neuro status and patient is a fall risk - Monitor serum electrolytes and CBC (2) Electrolyte abnormality: Code(s): E87.8 - Other disorders of electrolyte and fluid balance, not elsewhere classified Status: Acute Assessment and Plan: sodium 130 and potassium 2.5 on admission Patient was started on IV fluids and received potassium supplementation in the ED - sodium 135 on a.m. labs - potassium 3.4 on a.m. labs - continue to monitor (3) Hypothyroidism: Code(s): E03.9 - Hypothyroidism, unspecified Status: Acute Assessment and Plan: TSH elevated at 54.1 T4 low at 0.22 Started on levothyroxine 112 mcg daily (per guidelines of 1.6 mcg/kg starting dose) Patient will need outpatient follow up with her PCP to reassess thyroid levels (4) Hypertension: Code(s): I10 - Essential (primary) hypertension Status: Acute Assessment and Plan: chronic, continue home medications - amlodipine 5 mg daily - Lasix 40 mg b.i.d. - monitor Time Spent With Patient Time with patient: 25 - 35 minutes Subjective Date/time seen: 01/30/24 07:00 Interval history: Patient is pleasant lying comfortably in bed. She continues to endorse a bitemporal headache. She has a small wound to the center of her head which she states is chronic and denies any recent trauma. She denies any associated vision changes lightheadedness dizziness or nausea/vomiting with the headache. She states that the headache is well controlled with current pain regimen. She has no other complaints denying chest pain, shortness a breath, palpitations and abdominal pain. Review of Systems Review of Systems: All systems reviewed & are unremarkable except as noted in HPI and below Exam Narrative: AF HR 74 RR 18 SpO2 98 BP 128/81 General: female in no acute respiratory distress who is nontoxic appearing, lying semi recumbent in bed. HEENT: Normocephalic. Small abrasion to the center forehead. Extraocular movement intact. Sclera clear and anicteric. No facial asymmetry. Chest: Lungs are clear to auscultation bilaterally. No wheezes or crackles. CV: Heart was regular rate and rhythm. S1-S2. No murmurs, gallops, or rubs. Abd: Abdomen was soft. Nontender. Nondistended. Positive bowel sounds. No organomegaly or masses. Ext: No clubbing, cyanosis, or edema. 2+ DP pulses bilaterally. Neuro: Patient is alert. Cranial nerves 2-12 are intact. Speech is clear. Objective Data Vital Signs Vital Signs: Vital Signs - 24 hr 01/29/24 16:45 01/29/24 19:24 01/29/24 19:24 Temperature 98.0 F Pulse Rate 75 72 Respiratory Rate 18 17 Blood Pressure 140/84 132/80 Pulse Oximetry 100 100 Oxygen Delivery Room Air Room Air 01/29/24 19:30 01/29/24 21:34 01/29/24 21:47 Temperature Pulse Rate 69 66 67 Respiratory Rate 18 12 14 Blood Pressure 133/79 147/90 H Pulse Oximetry 100 100 100 Oxygen Delivery 01/30/24 00:21 01/30/24 00:00 01/30/24 04:00 Temperature 97.2 F L Pulse Rate 59 L 72 Respiratory Rate 18 Blood Pressure 121/69 Pulse Oximetry 99 Oxygen Delivery Room Air 01/30/24 05:42 Temperature 98.0 F Pulse Rate 81 Respiratory Rate 18 Blood Pressure 107/79 Pulse Oximetry 97 Oxygen Delivery Intake/Output Intake/Output: Intake & Output 01/27/24 01/28/24 01/29/24 01/30/24 23:59 23:59 23:59 23:59 Intake Total 770 Balance 770 Meds/Results Medications: Active Medications Generic Name Dose Route Start Last Admin Trade Name Freq PRN Reason Stop Dose Admin Acetaminophen 650 mg 01/29/24 22:00 Acetaminophen 325 Mg Tablet PO Q4H PRN Mild Pain (1-3) or Fever Amlodipine Besylate 5 mg 01/30/24 09:00 Amlodipine Besylate 5 Mg Tablet PO DAILY LIDA Aspirin 81 mg 01/30/24 09:00 Aspirin 81 Mg Enteric Tablet PO QAM LIDA Clonazepam 0.5 mg 01/30/24 09:00 Clonazepam (*Crx) 0.5 Mg Tablet PO BID [facility] Famotidine 20 mg 01/30/24 09:00 Famotidine 20 Mg Tablet PO Q12HR [facility] Hydrocortisone 1 applic 01/30/24 04:36 Hydrocortisone 2.5% Cream 30 Gm Tube TOPICAL Q4HWA PRN Itching Hydroxyzine Pamoate 50 mg 01/30/24 09:00 Hydroxyzine Pamoate 25 Mg Capsule PO TID [facility] Sodium Chloride 1,000 mls @ 75 mls/hr 01/29/24 22:00 Normal Saline Iv IV CONT .[id number] [facility] Loperamide HCl 2 mg 01/30/24 04:36 Loperamide Hcl 2 Mg Capsule PO Q4H PRN Diarrhea Melatonin 5 mg 01/30/24 21:00 Melatonin 5 Mg Tablet PO [facility] Miscellaneous Information 1 each 01/30/24 00:01 Pramoxine Cream Is Nonformulary, We Only Carry Pramoxine Foam, Can Patient Bring From Home XX 02/29/24 00:00 CLARIFY [facility] Non-Formulary Medication 1 applic 01/30/24 09:00 Pramoxine TOPICAL 02/29/24 08:59 BID [facility] Perflutren Lipid Microsphere 0 ml 01/30/24 00:35 Perflutren Lipid Microspheres 1.5 Ml Vial Diluted To 10 Ml Total Volume IV PUSH 02/02/24 00:35 ONCE PRN adequate visualization Protocol Sertraline HCl 50 mg 01/30/24 09:00 Sertraline Hcl 50 Mg Tablet PO DAILY [facility] Sodium Chloride 2 spray 01/30/24 09:00 Saline 0.65% Tylor Soln 44 Ml Btl NASAL BID [facility] Trazodone HCl 50 mg 01/30/24 21:00 Trazodone Hcl 50 Mg Tablet PO [facility] Radiology Results: ITS Impressions Chest X-Ray 01/29/24 17:01 IMPRESSION: No focal infiltrate or effusion. Shoulder X-Ray 01/29/24 17:04 IMPRESSION: No acute fracture or anterior dislocation. Chest CTA 01/29/24 20:49 IMPRESSION: No pulmonary embolus. No aortic dissection. No discrete osseous abnormality. The lungs are clear Venous Doppler Study 01/29/24 21:29 IMPRESSION: 1. No deep venous thrombosis. Labs Labs: Laboratory Results - last 24 hr 01/29/24 01/29/24 01/29/24 18:29 18:31 19:49 WBC 10.0 RBC 4.76 Hgb 13.3 Hct 38.2 MCV 80.3 MCH 27.9 MCHC 34.8 RDW 11.9 Plt Count 241 MPV 11.3 H Immature Gran % (Auto) 0.3 Neut % (Auto) 62.9 Lymph % (Auto) 26.6 Forrest % (Auto) 6.8 Eos % (Auto) 2.8 Baso % (Auto) 0.6 Lymph # (Auto) 2.65 Forrest # (Auto) 0.7 H Eos # (Auto) 0.3 Baso # (Auto) 0.1 Abs Immat Gran (auto) 0.03 Absolute Neuts (auto) 6.3 Absolute Nucleated RBC 0.000 Nucleated RBC % 0.0 PT 12.6 INR 0.9 APTT 23.4 D-Dimer 0.28 VBG pH VBG pCO2 VBG pO2 VBG HCO3 O2 Delivery Device O2 Liters/Min FiO2 Sodium 130 L Potassium 2.5 L* Chloride 79 L Carbon Dioxide > 40 H Anion Gap BUN 34 H Creatinine 1.40 H Estim Creat Clear Calc 37 Estimated GFR 39 L Glucose 132 H Calcium 8.5 Magnesium Total Bilirubin 0.6 AST 27 ALT 23 Alkaline Phosphatase 106 Troponin I < 0.012 < 0.012 NT-Pro-B Natriuret Pep 60 Total Protein 9.0 H Albumin 4.9 Lipase 58 Urine Color Yellow Urine Appearance Clear Urine pH 5.5 Ur Specific Hope 1.012 Urine Protein Negative Urine Glucose (UA) Negative Urine Ketones Negative Ur Blood (Man) Negative Urine Nitrate Negative Urine Bilirubin Negative Urine Urobilinogen 0.2 Add Ur Microanalysis Reviewed Leukocyte Esterase Rfl 2+ H Urine RBC 0-2 Urine WBC 6-10 H Ur Squamous Epith Cells Occasional Urine Bacteria Rare Urine Casts 6-10 Hyaline Casts Present 01/29/24 01/29/24 01/30/24 22:25 22:41 01:39 WBC RBC Hgb Hct MCV MCH MCHC RDW Plt Count MPV Immature Gran % (Auto) Neut % (Auto) Lymph % (Auto) Forrest % (Auto) Eos % (Auto) Baso % (Auto) Lymph # (Auto) Forrest # (Auto) Eos # (Auto) Baso # (Auto) Abs Immat Gran (auto) Absolute Neuts (auto) Absolute Nucleated RBC Nucleated RBC % PT INR APTT D-Dimer VBG pH 7.535 H* VBG pCO2 48.1 H VBG pO2 42.7 VBG HCO3 39.7 H O2 Delivery Device Room air O2 Liters/Min Not Reportable FiO2 21 Sodium 133 L Potassium 2.8 L* Chloride 85 L Carbon Dioxide > 40 H Anion Gap BUN 27 H Creatinine 1.10 H Estim Creat Clear Calc Not Reportable Estimated GFR 52 L Glucose 147 H Calcium 8.2 L Magnesium 1.7 Total Bilirubin AST ALT Alkaline Phosphatase Troponin I < 0.012 NT-Pro-B Natriuret Pep Total Protein Albumin Lipase Urine Color Urine Appearance Urine pH Ur Specific Hope Urine Protein Urine Glucose (UA) Urine Ketones Ur Blood (Man) Urine Nitrate Urine Bilirubin Urine Urobilinogen Add Ur Microanalysis Leukocyte Esterase Rfl Urine RBC Urine WBC Ur Squamous Epith Cells Urine Bacteria Urine Casts Hyaline Casts Quality VTE Prophylaxis VTE prophylaxis: pharmacologic ordered
[2024-01-30 07:14] LABS: Hematocrit 38.2 % (37.0-47.0); Hemoglobin 12.7 g/dL (12.0-15.0); Mean Corpuscular HGB Conc 33.2 g/dl (32-36); Mean Corpuscular Hemoglobin 27.3 pg (26-34); Mean Corpuscular Volume 82.2 fl (80-100); Mean Platelet Volume 11.5 fl (7.4-10.4); Platelet Count Result 219 k/mm3 (150-375); Red Blood Count 4.65 M/mm3 (4.2-5.4); White Blood Count 9.6 K/mm3 (4.5-10.0)
[2024-01-30 07:24] LABS: Blood Urea Nitrogen 28 mg/dL (7-17); Calcium 8.2 mg/dL (8.4-10.2); Carbon Dioxide > 40 mmol/L (22-30); Chloride 88 mmol/L (98-107); Estimated Glomerular Filt Rate 47; Glucose 130 mg/dL (65-110); Potassium 3.4 mmol/L (3.4-5.0); Sodium 135 mmol/L (137-145)
[2024-01-30] MEDS: hydrOXYzine pamoate 25 MG CAPSULE 50 MG PO ×3 (08:43→16:47)
[2024-01-30] MEDS: FAMOTIDINE 20 MG TABLET PO ×2 (08:44→20:51)
[2024-01-30] MEDS: SALINE 0.65% NAS SOLN 44 ML BTL 2 SPRAY NASAL ×2 (08:44→16:47)
[2024-01-30] MEDS: amLODIPine BESYLATE 5 MG TABLET PO (08:44)
[2024-01-30] MEDS: clonazePAM (*CRX) 0.5 MG TABLET PO ×2 (08:44→16:47)
[2024-01-30] MEDS: SERTRALINE HCL 50 MG TABLET PO (08:44)
[2024-01-30] MEDS: ASPIRIN 81 MG ENTERIC TABLET PO (08:44)
[2024-01-30] MEDS: ACETAMINOPHEN 325 MG TABLET 650 MG PO (08:49)
[2024-01-30] MEDS: SODIUM CHLORIDE 0.9% IV 1,000 ML 75 ML IV CONT (08:55)
[2024-01-30 09:33] LABS: Free T4 Free Thyroxine Reflex 0.22 ng/dL (0.78-2.19)
[2024-01-30] MEDS: traZODone HCL 50 MG TABLET PO (20:50)
[2024-01-30] MEDS: MELATONIN 5 MG TABLET PO (20:51)
[2024-01-31] VITALS (7 sets, daily range): BP systolic 120–142; BP diastolic 66–92; PULSE 62–75; RESP 12–18; TEMP 36.3–36.6; O2SAT 93–97
[2024-01-31] MEDS: LEVOTHYROXINE SODIUM 112 MCG TABLET PO (06:10)
[2024-01-31] MEDS: SODIUM CHLORIDE 0.9% IV 1,000 ML 75 ML IV CONT (06:19)
[2024-01-31 08:28] LABS: Basophils Absolute Auto 0.1 K/mm3 (0.0-0.1); Basophils Percent Auto 0.7 % (0.2-1.2); Eosinophils Absolute Auto 0.4 K/mm3 (0-0.3); Eosinophils Percent Auto 5.5 % (0-4.4); Hematocrit 34.8 % (37.0-47.0); Hemoglobin 11.4 g/dL (12.0-15.0); Immature Granulocyte Absolute 0.04 K/mm3 (0.00-0.031); Immature Granulocyte Percent A 0.6 % (0-0.5); Lymphocytes Absolute Auto 2.07 K/mm3 (0.9-3.2); Lymphocytes Percent Auto 30.2 % (18.3-44.2); Mean Corpuscular HGB Conc 32.8 g/dl (32-36); Mean Corpuscular Hemoglobin 27.2 pg (26-34); Mean Corpuscular Volume 83.1 fl (80-100); Mean Platelet Volume 11.7 fl (7.4-10.4); Monocytes Absolute Auto 0.5 K/mm3 (0.1-0.6); Monocytes Percent Auto 7.9 % (2.6-8.5); Neutrophils Absolute Auto 3.8 K/mm3 (1.3-6.7); Neutrophils Percent Auto 55.1 % (45.5-73.1); Platelet Count Result 200 k/mm3 (150-375); Red Blood Count 4.19 M/mm3 (4.2-5.4); Red Cell Distribution Width 12.1 % (11.5-14.5); White Blood Count 6.9 K/mm3 (4.5-10.0)
[2024-01-31] MEDS: amLODIPine BESYLATE 5 MG TABLET PO (08:43)
[2024-01-31] MEDS: SERTRALINE HCL 50 MG TABLET PO (08:43)
[2024-01-31] MEDS: FAMOTIDINE 20 MG TABLET PO (08:43)
[2024-01-31] MEDS: clonazePAM (*CRX) 0.5 MG TABLET PO ×2 (08:43→17:33)
[2024-01-31] MEDS: ASPIRIN 81 MG ENTERIC TABLET PO (08:43)
[2024-01-31 08:44] LABS: Alanine Aminotransferase 17 U/L (6-35); Albumin Level 4.1 g/dL (3.5-5.1); Alkaline Phosphatase 76 U/L (38-126); Anion Gap 9 mmol/L (4-12); Aspartate Amino Transferase 23 U/L (14-36); Bilirubin,Total 0.5 mg/dL (0.2-1.3); Blood Urea Nitrogen 17 mg/dL (7-17); Calcium 8.6 mg/dL (8.4-10.2); Carbon Dioxide 32 mmol/L (22-30); Chloride 96 mmol/L (98-107); Estimated Glomerular Filt Rate > 60; Glucose 128 mg/dL (65-110); Potassium 3.2 mmol/L (3.4-5.0); Sodium 137 mmol/L (137-145)
[2024-01-31] MEDS: hydrOXYzine pamoate 25 MG CAPSULE 50 MG PO ×3 (08:44→17:33)
[2024-01-31] MEDS: ACETAMINOPHEN 325 MG TABLET 650 MG PO (08:49)
[2024-01-31] MEDS: SALINE 0.65% NAS SOLN 44 ML BTL 2 SPRAY NASAL ×2 (09:00→17:34)
[2024-01-31] MEDS: POTASSIUM CHLORIDE 20 MEQ ER TABLET 40 MEQ PO (09:45)
--- NOTE | 2024-01-31 13:23 | P.DS_ITS ---
DS: Admitting Diagnosis Discharge Date 01/31/2024 Admitting Diagnosis acute kidney injury electrolyte abnormality hypothyroidism hypertension DS: Discharge Diagnosis Discharge Diagnosis (1) Acute kidney injury: Code(s): N17.9 - Acute kidney failure, unspecified Status: Acute (2) Electrolyte abnormality: Code(s): E87.8 - Other disorders of electrolyte and fluid balance, not elsewhere classified Status: Acute (3) Hypothyroidism: Code(s): E03.9 - Hypothyroidism, unspecified Status: Acute (4) Hypertension: Code(s): I10 - Essential (primary) hypertension Status: Acute DS: Summary Hospital Course Reason for hospitalization: acute kidney injury electrolyte abnormality hypothyroidism hypertension Hospital Course: 53-year-old female presents to the hospital for multiple complaints including headache, chest pain, and left shoulder pain. Troponins and EKG were unremarkable. She was noted to have a several electrolyte imbalances and a slig ht kidney injury. Patient was started on IV fluids and received potassium supplementation at that time. Her hyponatremia and kidney injury both resolved with the IV fluids. Patient was started on potassium supplementation and is to have her blood drawn in 3 days to reassess her level. Patient was also noted to an elevated TSH and low T4 concerning for hypothyroidism. She was started on levothyroxine 112 mcg daily per guidelines. She is to follow up with her primary care to reassess thyroid levels. patient had several images done due to her multiple complaints. The chest x-ray showed no focal infiltrate or effusion. The chest CTA showed no PE, aortic dissection, discrete osseous abnormality. Patient also had venous Dopplers performed due to left upper extremity edema which were negative DVT. Head CT was performed due to ongoing headache with noted abrasions to forehead and left temporal region though the patient denies any trauma. Head CT is negative for acute intracranial process. At time of discharge patient had no complaints denies chest pain, shortness a breath, palpitations, headache, lightheadedness/dizziness, nausea/vomiting, and abdominal pain. patient discharged back to her intermediate in a stable condition. She is to obtain a blood draw to reassess potassium levels in 3 days and follow-up with her primary care provider in 1 week. Status at Discharge Functional status at discharge: uses cane/walker Time Spent with Patient Time attestation: Total time spent providing and/or coordinating discharge services: Time spent: Greater than 30 minutes Exam Narrative: AF HR 64 RR 18 SpO2 97 BP 120/66 General: female in no acute respiratory distress who is nontoxic appearing, lying semi recumbent in bed. HEENT: Normocephalic. Small abrasion to the center forehead and right temporal region. Extraocular movement intact. Sclera clear and anicteric. No facial asymmetry. Chest: Lungs are clear to auscultation bilaterally. No wheezes or crackles. CV: Heart was regular rate and rhythm. S1-S2. No murmurs, gallops, or rubs. Abd: Abdomen was soft. Nontender. Nondistended. Positive bowel sounds. No organomegaly or masses. Ext: No clubbing, cyanosis, or edema. 2+ DP pulses bilaterally. Neuro: Patient is alert. Cranial nerves 2-12 are intact. Speech is clear. DS: Data Data Completed and Pending Completed studies during hospitalization: head ct chest xr shoulder xr chest cta venous dopplers Labs on day of discharge: Labs from last 24 hours 01/31/24 07:52 WBC 6.9 RBC 4.19 L Hgb 11.4 L Hct 34.8 L MCV 83.1 MCH 27.2 MCHC 32.8 RDW 12.1 Plt Count 200 MPV 11.7 H Immature Gran % (Auto) 0.6 H Neut % (Auto) 55.1 Lymph % (Auto) 30.2 Sunflower % (Auto) 7.9 Eos % (Auto) 5.5 H Baso % (Auto) 0.7 Lymph # (Auto) 2.07 Sunflower # (Auto) 0.5 Eos # (Auto) 0.4 H Baso # (Auto) 0.1 Abs Immat Gran (auto) 0.04 H Absolute Neuts (auto) 3.8 Absolute Nucleated RBC 0.000 Nucleated RBC % 0.0 Sodium 137 Potassium 3.2 L Chloride 96 L Carbon Dioxide 32 H Anion Gap 9 BUN 17 D Creatinine 0.80 Estim Creat Clear Calc Not Reportable Estimated GFR > 60 Glucose 128 H Calcium 8.6 Total Bilirubin 0.5 AST 23 ALT 17 Alkaline Phosphatase 76 Total Protein 7.0 Albumin 4.1 Discharge Plan Discharge Attending physician on discharge: Domingo Dunbar Discharging Clinician: Lilian Pandey Anticipated Discharge Date/Time: 01/31/24 13:20 Patient Disposition: NH Alf/Asst Living Activity: as tolerated Diet: as tolerated and heart healthy Discharge Instructions: Discharge disposition: Patient was admitted to the hospital with multiple complaints including headache, chest pain, and shoulder pain A head CT, chest xray, chest CTA, shoulder XR and venous dopplers were obtained. All of which were unremarkable. On admission patient electrolyte abnormalities likely secondary to her acute kidney injury and dehydration She was started on IV fluids for the low sodium and received potassium supplementation Sodium levels have since return to normal Patient was started on potassium supplementation and is to obtain an outpatient blood draw in 3 days to reassess Attached is information on potassium supplements Patient had a slight kidney injury on admission for which she was started on IV fluids and it has since resolved Take all medications as prescribed even if feeling better Eat well balanced meals and stay hydrated Keep active to remain strong Avoid use of diapers or pads Good annamaria Care every 2 hours Trend urine output Patient was found to low thyroid levels and was started levothyroxine, attached information on this medication She will need to follow up with her primary care provider to reassess thyroid levels Take medications as prescribed Monitor blood pressures Take caution while standing, rising, or moving Change positions slowly taking a break between each position change If you standing feel dizzy sit back down and take a break Encouraged to continue with yearly vaccinations Return to the emergency department if he developed sudden shortness of breath, chest pain, nausea, vomiting, upset stomach or intractable diarrhea Return to the emergency department if you develop fever greater than 101.5 Follow-up with the primary care physician within 1-2 weeks Thank you for choosing [facility] for your healthcare needs Patient Instructions: Levothyroxine (By mouth), Potassium Chloride (By mouth), Acute Kidney Injury (DC), Hypokalemia (DC), Hypothyroidism (DC) Patient Language: [place] Stand Alone Forms: General Discharge Information Follow-up/Referrals: UNKNOWN,DOCTOR [Primary Care Provider] - 1 Week Discharge Medications: New levothyroxine [Synthroid] 112 mcg Tablet 112 mcg PO DAILY@0630 Qty: 30 0RF potassium chloride 20 mEq tablet extended release 20 meq PO DAILY Qty: 30 0RF Continued furosemide 40 mg Tablet 40 mg PO BID metolazone 2.5 mg Tablet 2.5 mg PO DAILY loperamide 2 mg Capsule 2 mg PO Q4H PRN (Reason: Diarrhea) Rx Instructions: administer after each loose stool until symptoms controlled; do not exceed 8 mg per 24 hrs trazodone 50 mg Tablet 50 mg PO HS pramoxine 1 % Cream 1 applic TOPICAL BID Rx Instructions: Apply to arms, legs & chest BID for itching cetirizine [Allergy Relief (cetirizine)] 5 mg Tablet 5 mg PO DAILY PRN (Reason: Allergy Symptoms) meloxicam 15 mg Tablet 15 mg PO DAILY clonazepam 0.5 mg Tablet 0.5 mg PO BID hydroxyzine pamoate 50 mg Capsule 50 mg PO TID amlodipine 5 mg Tablet 5 mg PO DAILY acetaminophen 500 mg Tablet 500 mg PO Q6H PRN (Reason: Pain) famotidine 20 mg Tablet 20 mg PO BID hydrocortisone 2.5 % Cream 1 applic TOPICAL Q4HWA PRN (Reason: Itching) aspirin 81 mg Tablet 81 mg PO DAILY sertraline 50 mg Tablet 50 mg PO DAILY [place] Nasal 0.65 % Aerosol,[place] 2 spray INTRANASAL BID melatonin 5 mg Tablet 5 mg PO HS Orajel 2X Toothache-Gum 20-0.26 % Gel See Rx Instructions .ROUTE .COMPLEX PRN (Reason: gum pain) Rx Instructions: Apply to gums Q 6 hours PRN for gum pain Other Ambulatory Orders: Basic Metabolic Panel (Routine) Timeframe: 3 Days Location: Determined by Patient Ordered By: Lilian Pandey Date of admission: 01/29/24 23:33 Primary Care Provider: UNKNOWN,DOCTOR Admitting Provider: Domingo Dunbar Attending physician on admission: Lilian Pandey Condition: Stable Hospitalist MIPS Heart Failure (Exclusion) Patient has history of Heart Transplant or Left Ventricular Assistive Device?: No IF YES, STOP HERE Heart Failure (Qualifier) Patient has current or prior documentation of LVEF less than or equal to 40%, or mod/servere depressed LVSF?: No IF NO, STOP HERE
--- NOTE | 2024-02-04 15:46 | HP_ITS ---
DATE OF SERVICE: 01/29/2024 CHIEF COMPLAINT: Headache. HISTORY OF PRESENT ILLNESS: This is a 53-year-old female with history of cognitive impairment, hypertension, hyperlipidemia, anemia, type 2 diabetes mellitus, asthma, systolic congestive heart failure, depression, and bipolar disorder, who presented to the Emergency Department via EMS from [place] for evaluation of headache. The patient provides the following history. She has never been seen at this facility before and recently moved to [place] from out of town. She gives a 3-day history of generalized frontal headache in addition to decreased appetite, left shoulder discomfort with arm swelling, and several loose stools a day. She has also noticed an increase in swelling in her legs and reports that she was started on metolazone not too long ago with some benefit. She denies vertigo, fever, chills, sweats, sinus congestion, sore throat, cough, exertional chest pain, pleuritic pain, orthopnea, nausea, dysuria, melena, hematochezia, hematuria, or calf pain. She also denies sick contacts. No recent antibiotic use or travel. PAST MEDICAL HISTORY: 1. Cognitive impairment. 2. Hypertension. 3. Hyperlipidemia. 4. Systolic congestive heart failure. 5. Type 2 diabetes mellitus. 6. Anemia. 7. Asthma. 8. Bipolar disorder. 9. Depression. PAST SURGICAL HISTORY: Hysterectomy. FAMILY HISTORY: Noncontributory. SOCIAL HISTORY: The patient is a resident at [facility]. She has a history of tobacco use. No alcohol or illicit substance abuse. Her sister, Gini Simon is her surrogate decision maker. Patient wishes to be a full code. ALLERGIES: PENICILLINS (ANAPHYLAXIS). HOME MEDICATIONS: Home medications are not yet reconciled it is the time of this dictation. Please see electronic medical records. PERTINENT LABORATORY DATA: WBC count 10.0, hemoglobin 13.3, hematocrit 38.2%, and platelet 241. Sodium 130, potassium 2.5, chloride 79, BUN 34, creatinine 1.40, glucose 132, and total protein 9.0. ProBNP 60. Urinalysis was positive for 2+ leukocyte esterase and 6-10 wbc's with rare bacteria seen on microscopy. D-dimer is 0.28. Troponin less than 0.012. IMAGIN. Chest x-ray, no focal infiltrate or effusion. 2. Left shoulder x-ray, no acute fracture or anterior dislocation. 3. Chest CTA, no pulmonary embolus, aortic dissection, or discrete osseous abnormality. Lungs are clear. 4. Left upper extremity venous Doppler ultrasound, no deep venous thrombosis. PHYSICAL EXAMINATION: CURRENT VITAL SIGNS: Pulse is 59, respiratory rate 18, blood pressure 121/69, pulse ox 99% on room air, and temperature 97.2. GENERAL: Well-developed, nontoxic appearing female sitting up in bed. Weight 72.8 kg, BMI 32.4. HEENT: Atraumatic. Pupils are reactive. Extraocular motions intact. Oral mucosa is tacky. Oropharynx is crowded. She is edentulous. NECK: Supple. No JVD or lymphadenopathy. RESPIRATORY: Respirations are nonlabored. LUNGS: Clear to auscultation. CARDIOVASCULAR: Regular rate and rhythm with normal S1, S2. GASTROINTESTINAL: Abdomen is soft, protuberant, nontender, and nondistended with positive bowel sounds skin warm and dry. EXTREMITIES: No cyanosis or clubbing. Trace lower extremity edema bilaterally. Left arm is a bit edematous when compared to the right. There is some venous enlargement over the left anterior chest. MUSCULOSKELETAL: She has mild tenderness to palpation over the left shoulder. NEUROLOGIC: Alert. Cranial nerves 2 through 12 grossly intact. No gross focal deficits to casual conversation. PSYCHIATRIC: Cooperative with appropriate mood and slightly odd affect. Poor eye contact. IMPRESSION: 1. Headache. 2. Electrolyte abnormality. 3. Mild dehydration. 4. Left upper extremity edema. 5. Systolic congestive heart failure. 6. Hypertension. 7. Type 2 diabetes mellitus. 8. Asthma. 9. Diarrhea. PLAN: The patient presented to the Emergency Department for evaluation of headache as detailed in the HPI. Labs, EKG, imaging, and all reports were reviewed. She looks dehydrated on exam and by labs and her headache could be stemming from that. Tylenol is available as needed. Her potassium will be replaced and monitored. Continue normal saline overnight with close monitoring of volume status and renal function. She has some mild edema in the legs and swelling of the left arm, but she does not look overtly decompensated with regard to CHF, and in fact, her BNP is quite low. Diuretics have been placed on hold for now. Blood pressures were reviewed and they are stable. Records requested from [facility] in [place] to help establish her baseline labs. Check stool studies. Her home medications will be reviewed and resumed as appropriate. D I MT: Anders HEARD
--- NOTE | 2024-02-07 12:45 | WPDHPUPDATE1 ---
History and Physical Update Update Date/Time: 02/07/24 12:45 Addendum to 01/29/2024 history and physical: I have utilized all available immediate resources to obtain, update, or review the patient's current medications (including all prescriptions, [id number] products, herbals, cannabis/cannabidiol products, and vitamin/mineral/dietary (nutritional) supplements). YES I confirmed that the patient's Advance Care Plan is present, code status is documented, or surrogate decision maker is listed in the patient's medical record. YES
== END 2024-01-31 17:40 ==
LOC: ANHED 21:54 → ANH3MEDSUR 01-30 06:47
PROVIDERS: Physician Assistant; Admitting Provider Internal Medicine; Emergency Provider Emergency Medicine; Visit Provider Student in an Organized Health Care Education/Training Program
DX: N17.9 Acute kidney failure, unspecified (principal); E87.1 Hypo-osmolality and hyponatremia; E87.6 Hypokalemia; E86.0 Dehydration; R51.9 Headache, unspecified; R60.0 Localized edema; I11.0 Hypertensive heart disease with heart failure; I50.22 Chronic systolic (congestive) heart failure; E11.9 Type 2 diabetes mellitus without complications; J45.909 Unspecified asthma, uncomplicated; E03.9 Hypothyroidism, unspecified; G31.84 Mild cognitive impairment of uncertain or unknown etiology; E78.5 Hyperlipidemia, unspecified; F31.9 Bipolar disorder, unspecified; Z79.3 Long term (current) use of hormonal contraceptives; Z79.82 Long term (current) use of aspirin; Z79.899 Other long term (current) drug therapy; Z88.0 Allergy status to penicillin
CPT/HCPCS: 36415; 70450; 71046; 71275; 73030; 80048; 80053; 81001; 82803; 83690; 83735; 83880; 84439; 84443; 84484; 85025; 85027; 85380; 85610; 85730; 87086; 87088; 93005; 93306; 93970; 93971; 96365; 96366; 99212; 99285; A9270; G0378; G0463; J3480; J7030; J7040; Q9967

== ENCOUNTER 2024-02-09 21:35 | Emergency (ER) | payer MEDICARE, MEDICAID, SELFPAY ==
--- NOTE | ~2024-02-09 | XR_ITS ---
EXAMINATION: XR foot RT min 3V DATE: 02/10/2024 04:25 INDICATION: Right foot swelling. TECHNIQUE: 4 views of right foot were obtained. COMPARISON: None. FINDINGS: There is moderate hallux valgus. No fracture. There is mild osteoarthritis of first metatar sophalangeal joint. There are enthesophytes at the posterior and plantar aspects of calcaneal tuberos ity. IMPRESSION: 1. Moderate hallux valgus. 2. Mild osteoarthritis of first metatarsophalangeal joint. Reviewed, dictated and finalized at location A. METAL CHARGER
--- NOTE | ~2024-02-09 | XR_ITS ---
EXAMINATION: XR shoulder LT min 2V DATE: 02/10/2024 04:25 INDICATION: Left shoulder pain. TECHNIQUE: 5 views of left shoulder were obtained. COMPARISON: Left shoulder radiographs 01/29/2024 FINDINGS: Alignment is normal. No fracture. There is mild osteoarthritis of glenohumeral joint. Acrom ioclavicular joint is normal. IMPRESSION: 1. Mild glenohumeral joint osteoarthritis. Reviewed, dictated and finalized at location A. ALS NURSE
[2024-02-09 21:40] VITALS: BP 145/77; PULSE 81; RESP 15; TEMP 36.5; O2SAT 100
[2024-02-10] MEDS: KETOROLAC 15 MG/ML VIAL (*BKC) IM (04:28)
--- NOTE | 2024-02-10 05:06 | ED_ITS ---
HPI - Extremity Problem General Chief complaint: Extremity Problem,Nontraumatic <Sami Escudero MD - Last Filed: 02/10/24 07:06> Stated complaint: multiple complaints <Sami Escudero MD - Last Filed: 02/10/24 07:06> Time Seen by Provider: 02/10/24 03:56 <Sami Escudero MD - Last Filed: 02/10/24 07:06> History of Present Illness HPI Narrative: Patient is a 54-year-old female who presents to the emergency department this evening complaining of left shoulder pain and low right foot swelling. Patient denies any recent falls or trauma. Patient resides in a nearby detention and per EMS report, patient signed out of her detention against medical advice and called 911 and was brought to our facility for further evaluation. Patient states that she has been complaining of left shoulder pain to the nursing staff at the detention for approximately 1 week and nothing was done about it. Patient also states that she does not like the detention facility and does not want to go back as they are mean to her and constantly pick at her. Patient has full range of motion at the left shoulder joint without any difficulty and is walking on her right foot without any pain or difficulty. Denies any additional symptoms or concerns at this time. <Sami Escudero MD - Last Filed: 02/10/24 07:06> Related Data Home medications: Home Medications Medication Instructions Recorded Confirmed acetaminophen 500 mg tablet 500 mg PO Q6H PRN Pain 01/30/24 01/30/24 amlodipine 5 mg tablet 5 mg PO DAILY 01/30/24 01/30/24 aspirin 81 mg tablet 81 mg PO DAILY 01/30/24 01/30/24 benzocaine 20 %-menthol 0.26 % See Rx Instructions .Route 01/30/24 01/30/24 mouth mucosal gel (Orajel 2X .COMPLEX PRN gum pain Toothache-Gum) cetirizine 5 mg tablet (Allergy 5 mg PO DAILY PRN Allergy Symptoms 01/30/24 01/30/24 Relief (cetirizine)) clonazepam 0.5 mg tablet 0.5 mg PO BID 01/30/24 01/30/24 famotidine 20 mg tablet 20 mg PO BID 01/30/24 01/30/24 furosemide 40 mg tablet 40 mg PO BID 01/30/24 01/30/24 hydrocortisone 2.5 % topical cream 1 applic topical Q4HWA PRN Itching 01/30/24 01/30/24 hydroxyzine pamoate 50 mg capsule 50 mg PO TID 01/30/24 01/30/24 loperamide 2 mg capsule 2 mg PO Q4H PRN Diarrhea 01/30/24 01/30/24 melatonin 5 mg tablet 5 mg PO HS 01/30/24 01/30/24 meloxicam 15 mg tablet 15 mg PO DAILY 01/30/24 01/30/24 metolazone 2.5 mg tablet 2.5 mg PO DAILY 01/30/24 01/30/24 pramoxine 1 % topical cream 1 applic topical BID 01/30/24 01/30/24 sertraline 50 mg tablet 50 mg PO DAILY 01/30/24 01/30/24 sodium chloride 0.65 % nasal spray 2 spray intranasal BID 01/30/24 01/30/24 aerosol (Deep Sea Nasal) trazodone 50 mg tablet 50 mg PO HS 01/30/24 01/30/24 <Sami Escudero MD - Last Filed: 02/10/24 07:06> Allergies/Adverse reactions: Allergies Allergy/AdvReac Type Severity Reaction Status Date / Time ciprofloxacin Allergy Unknown Verified 01/30/24 01:07 lisinopril Allergy Unknown Verified 01/30/24 01:07 Penicillins Allergy Anaphylaxis Verified 01/29/24 19:29 Sulfa (Sulfonamide Allergy Unknown Verified 01/30/24 01:07 Antibiotics) sulfamethoxazole Allergy Unknown Verified 01/30/24 01:07 [From Bactrim] trimethoprim [From Bactrim] Allergy Unknown Verified 01/30/24 01:07 bactracin Allergy Rash Uncoded 01/30/24 01:07 <Sami Escudero MD - Last Filed: 02/10/24 07:06> Review of Systems Review of Systems: All systems are reviewed and are negative unless stated otherwise in the HPI. <Sami Escudero MD - Last Filed: 02/10/24 07:06> PMFSH Social History Social History: Social History Alcohol intake: unknown Substance use: never Do You Feel Safe in your Home?: Yes Lack of Transportation: No Lack of Food: Never True Current Housing: I Have Housing Concerned About Future Housing: No Difficulty Paying Gas/Electric Bills: No Difficulty Paying for Meds: No Currently Unemployed: No Education: High School Diploma/GED Difficulty w/ Childcare or Family Care: No Spiritual care concerns: No <Sami Escudero MD - Last Filed: 02/10/24 07:06> Exam Narrative: General: Alert, awake, afebrile, in no acute distress. HEENT: PERRL, no rhinorrhea, no post nasal drip, oropharynx clear. Neck: Trachea midline, no JVD, no lymphadenopathy. Cardiovascular: Regular rate and rhythm, no murmurs, rubs or gallops, no pe ripheral edema. Respiratory: Clear to auscultation bilaterally, no tachypnea, no wheezing, no rhonchi, no rubs, no respiratory distress. Abdomen: Soft, nontender, nondistended, no rebound, no guarding, no peritoneal signs. Musculoskeletal: No joint swelling or deformity, normal muscle tone, soft tissue swelling to the right foot without any overlying erythema, ecchymosis or any evidence of cellulitis, no tenderness to palpation at the base of the 5th metatarsal and the midfoot. Skin: No rashes or petechia, no signs of infection, intact full ROM with active and passive movement at the left shoulder joint without difficulty/pain. Neurological: Alert and oriented to person, place, and time. Follows all commands. No focal deficits, speech is clear and fluent. <Sami Escudero MD - Last Filed: 02/10/24 07:06> Course Course Emergency Course: Patient signed out to me by previous provider pending career development coordinator/teacher assessment and placement. Patient was evaluated by career development coordinator/teacher and successfully placed into a care facility and left the department any further incident. His refer to previous providers dictation for full details of care. <Lj Bar MD - Last Filed: 02/10/24 19:08> Vital Signs Vital signs: Vital Signs Temperature 36.5 C 02/09/24 21:40 Pulse Rate 81 02/09/24 21:40 Respiratory Rate 15 02/09/24 21:40 Blood Pressure 145/77 H 02/09/24 21:40 Pulse Oximetry 100 02/09/24 21:40 Oxygen Delivery Room Air 02/09/24 21:40 Temperature 36.7 C 02/10/24 07:23 Pulse Rate 77 02/10/24 07:23 Respiratory Rate 18 02/10/24 07:23 Blood Pressure 122/71 02/10/24 07:23 Pulse Oximetry 97 02/10/24 07:23 Oxygen Delivery Room Air 02/09/24 21:40 <Sami Escudero MD - Last Filed: 02/10/24 07:06> Vital Signs Temperature 36.5 C 02/09/24 21:40 Pulse Rate 81 02/09/24 21:40 Respiratory Rate 15 02/09/24 21:40 Blood Pressure 145/77 H 02/09/24 21:40 Pulse Oximetry 100 02/09/24 21:40 Oxygen Delivery Room Air 02/09/24 21:40 Temperature 36.7 C 02/10/24 07:23 Pulse Rate 77 02/10/24 07:23 Respiratory Rate 18 02/10/24 07:23 Blood Pressure 122/71 02/10/24 07:23 Pulse Oximetry 97 02/10/24 07:23 Oxygen Delivery Room Air 02/09/24 21:40 <Lj Bar MD - Last Filed: 02/10/24 19:08> MDM - Extremity (Nontraumatic) MDM Narrative Medical decision making narrative: The patient was evaluated by myself in the emergency department. History is obtained from patient who is an independent historian and physical exam was performed. External medical records were reviewed at this time. Patient was administered 15 mg of IM Toradol for pain. Imaging studies obtained included left shoulder and right foot x-rays which was independently interpreted by me revealing no acute process, which is pending final radiology interpretation. Patient will be signed out to incoming a.m. ED physician pending career development coordinator/teacher evaluation. <Sami Escudero MD - Last Filed: 02/10/24 07:06> Discharge Plan Discharge Clinical Impression: Left shoulder pain <Sami Escudero MD - Last Filed: 02/10/24 07:06> Patient Disposition: NH Group Home/Asst Living <Sami Escudero MD - Last Filed: 02/10/24 07:06> Condition: Stable <Sami Escudero MD - Last Filed: 02/10/24 07:06> Prescriptions: No Action furosemide 40 mg Tablet 40 mg PO BID metolazone 2.5 mg Tablet 2.5 mg PO DAILY loperamide 2 mg Capsule 2 mg PO Q4H PRN (Reason: Diarrhea) Rx Instructions: administer after each loose stool until symptoms controlled; do not exceed 8 mg per 24 hrs trazodone 50 mg Tablet 50 mg PO HS pramoxine 1 % Cream 1 applic TOPICAL BID Rx Instructions: Apply to arms, legs & chest BID for itching cetirizine [Allergy Relief (cetirizine)] 5 mg Tablet 5 mg PO DAILY PRN (Reason: Allergy Symptoms) meloxicam 15 mg Tablet 15 mg PO DAILY clonazepam 0.5 mg Tablet 0.5 mg PO BID hydroxyzine pamoate 50 mg Capsule 50 mg PO TID amlodipine 5 mg Tablet 5 mg PO DAILY acetaminophen 500 mg Tablet 500 mg PO Q6H PRN (Reason: Pain) famotidine 20 mg Tablet 20 mg PO BID hydrocortisone 2.5 % Cream 1 applic TOPICAL Q4HWA PRN (Reason: Itching) aspirin 81 mg Tablet 81 mg PO DAILY sertraline 50 mg Tablet 50 mg PO DAILY Deep Sea Nasal 0.65 % Aerosol,[place] 2 spray INTRANASAL BID melatonin 5 mg Tablet 5 mg PO HS Orajel 2X Toothache-Gum 20-0.26 % Gel See Rx Instructions .ROUTE .COMPLEX PRN (Reason: gum pain) Rx Instructions: Apply to gums Q 6 hours PRN for gum pain levothyroxine [Synthroid] 112 mcg Tablet 112 mcg PO DAILY@0630 Qty: 30 0RF potassium chloride 20 mEq tablet extended release 20 meq PO DAILY Qty: 30 0RF <Sami Escudero MD - Last Filed: 02/10/24 07:06> Follow-up/Referrals: PHYSICIAN,COUPLES THERAPIST [Primary Care Provider] - <Sami Escudero MD - Last Filed: 02/10/24 07:06> Time of Disposition: 19:07 <Sami Escudero MD - Last Filed: 02/10/24 07:06> 19:07 <Lj Bar MD - Last Filed: 02/10/24 19:08>
[2024-02-10 07:23] VITALS: BP 122/71; PULSE 77; RESP 18; TEMP 36.7; O2SAT 97
--- NOTE | 2024-02-10 07:30 | PC.NURSE ---
Patient requesting breakfast. will speak with provider for a diet order.
--- NOTE | 2024-02-10 07:58 | PC.NURSE ---
diet order placed and meal tray ordered for patient
--- NOTE | 2024-02-10 08:35 | PCCCNOTE ---
[id number]-Called to the ED d/t the pt seeking alternative placement from [facility] in [place]. Pt stated she felt like the residents were picking on her and [facility]. Called Siobhan At [phone] with [facility]. Stated she would contact that location and f/u if placement would be accepted.-logan.
--- NOTE | 2024-02-10 09:01 | PC.NURSE ---
Care coordination called to speak with patient
--- NOTE | 2024-02-10 09:28 | PCCCNOTE ---
0925-Called Siobhan to check on the status of admission to [facility], stated she would accept the pt pending ED documentation. Did fax the ED Visit note Successfully to [phone]. Once approved report will need to be called in to the nurse at [facility] at [phone] and discharge papers sent with the pt to the facility. stated the PASSR should still be good. Currently waiting for [facility] staff to review the ED note and f/u with this Director Business Systems.-logan.
--- NOTE | 2024-02-10 10:07 | PCCCNOTE ---
7410-Received a call from Siobhan. Pt has been accepted at [facility] and may return today. Updated ED charge nurse and supplied a taxi voucher since pt is ambulatory independently. Also called her former facility in [place] at [phone] and spoke with Jerrica and let her know the pt would not be returning back to facility.-logan.
--- NOTE | 2024-02-10 10:38 | PC.NURSE ---
Spoke with Ez from [facility] and he states he was the DON and knew nothing about this patient being accepted to their facility. He took my information and states he will call me back. Care Coordination notified.
--- NOTE | 2024-02-10 10:38 | PCCCNOTE ---
1038-ED nurse Shereen let CC know there was a cheryl in discharge. Stated Pedro Admin was not aware of the admit. Toy stated she spoke with Mrs Torrez and obtained auth for the admission and the ED nurse is good to call in report. ED charge made aware.-logan.
== END 2024-02-10 10:54 ==
PROVIDERS: Emergency Provider Emergency Medicine
DX: M25.512 Pain in left shoulder (principal)
CPT/HCPCS: 73030; 73630; 96372; 99284; J1885